=== PATIENT | female | born 1970 | race Hispanic/Latino ===

== ENCOUNTER 2019-04-11 20:53 | Inpatient (IN) | payer BC ==
[~2019-04-11] VITALS: Ht 157.5 cm; Wt 104.8 kg
[2019-04-11] MEDS ORDERED: IBUPROFEN 600 MG TAB ONE (21:31)
[2019-04-11] MEDS ORDERED: ACETAMINOPHEN 325 MG TAB ONE (21:31)
[2019-04-11] MEDS ORDERED: IBUPROFEN 600 MG TAB PO STA (21:41)
[2019-04-11] MEDS ORDERED: ACETAMINOPHEN 325 MG TAB PO ONE (21:45)
[2019-04-11 21:58] LABS: BASOPHILS % 0.2 % (0.0-1.0); EOSINOPHILS % 0.2 % (0.0-6.0); HEMATOCRIT 43.9 % (34.2-44.1); HEMOGLOBIN 14.3 g/dL (12.0-16.0); LYMPHOCYTES # (AUTO) 0.6 (1.0-3.2); LYMPHOCYTES % 3.3 % (18.0-39.1); MEAN CORPUSCULAR HEMOGLOBIN 25.5 pg (28-32); MEAN CORPUSCULAR HGB CONC 32.6 g/dL (31-35); MEAN CORPUSCULAR VOLUME 78.3 fL (81-99); MONOCYTES # (AUTO) 0.8 (0.2-0.8); MONOCYTES % 4.4 % (4.4-11.3); NEUTROPHILS # (AUTO) 16.8 (2.1-6.9); NEUTROPHILS % 91.1 % (38.7-80.0); PLATELET COUNT 244 x10e3/uL (140-360); RED BLOOD COUNT 5.61 x10e6/uL (3.6-5.1); RED CELL DISTRIBUTION WIDTH 15.1 % (11.7-14.4)
[2019-04-11] MEDS ORDERED: IBUPROFEN 600 MG TAB PO ONE (22:00)
[2019-04-11 22:17] LABS: ALANINE AMINOTRANSFERASE 33 IU/L (0-55); ALBUMIN 3.9 g/dL (3.5-5.0); ALKALINE PHOSPHATASE 76 IU/L (40-150); ANION GAP 15.4 mmol/L (8-16); BLOOD UREA NITROGEN 12 mg/dL (7-26); BUN/CREATININE RATIO 14 (6-25); CALCIUM 9.7 mg/dL (8.4-10.2); CARBON DIOXIDE 23 mmol/L (22-29); CHLORIDE 98 mmol/L (98-107); CREATININE, SERUM 0.86 mg/dL (0.57-1.11); EST GLOMERULAR FILTRATION RATE > 60 ML/MIN (60-); GLUCOSE 130 mg/dL (74-118); POTASSIUM 4.4 mmol/L (3.5-5.1); SODIUM 132 mmol/L (136-145)
[2019-04-11] MEDS ORDERED: PENICILLIN G BENZATHINE LA 1.2 MU TBX IM STA (22:23)
[2019-04-11] MEDS ORDERED: SODIUM CHLORIDE 0.9% 1000ML 1,000 ML IV STA ×2 (22:23)
[2019-04-11 22:26] LABS: CLARITY,URINE SL CLOUDY (CLEAR); COLOR,URINE YELLOW (YELLOW); LEUKOCYTE ESTERASE ,URINE TRACE (NEGATIVE); NITRITE,URINE NEGATIVE (NEGATIVE)
[2019-04-11 22:27] LABS: BILIRUBIN,URINE NEGATIVE (NEGATIVE); KETONES,URINE NEGATIVE (NEGATIVE); PROTEIN,URINE DIPSTICK NEGATIVE (NEGATIVE); URINE UROBILINOGEN 0.2 mg/dL (0.2 - 1)
[2019-04-11] MEDS ORDERED: SODIUM CHLORIDE 0.9% 1000ML 2,000 ML ONE (22:28)
[2019-04-11] MEDS ORDERED: KETOROLAC TROMETHAMINE 30 MG/ML VIAL IV STA (22:36)
[2019-04-11] MEDS ORDERED: SODIUM CHLORIDE 0.9% 50ML 50 ML ONE (22:43)
[2019-04-11] MEDS ORDERED: IOPAMIDOL 370 MG/ML 200 ML INFUS..BTL INJ ONE (22:43)
[2019-04-11] MEDS ORDERED: DIPHENHYDRAMINE HCL INJ 50 MG/ML VIAL ONE (22:44)
[2019-04-11] MEDS ORDERED: DEXAMETHASONE SOD PHOS 10 MG/1 ML VIAL IV ONE (22:45)
[2019-04-11 22:54] LABS: BACTERIA,URINE MANY /HPF; EPITHELIAL CELLS,URINE MODERATE /LPF; WBC,URINE (MAN) 21-50 /HPF (0-5)
--- NOTE | 2019-04-11 23:43 | Diagnostic Imaging Report ---
CT Abdomen And Pelvis with Intravenous Contrast INDICATION: Diffuse abdominal pain and fever ^ABD PAIN, N/V ^[id number] ^2300 TECHNIQUE: Thin collimation axial images obtained from the diaphragm to the level of the pubic symphysis following the uneventful administration of 100 cc of low osmolar, nonionic intravenous contrast. Dose reduction techniques used: Automated exposure control, adjustment of the mAs and/or kVp according to patient size, standardized low-dose protocol, and/or iterative reconstruction technique. RADIATION DOSE: Total DLP: 802.4 mGy*cm Estimated effective dose: (DLP x 0.015 x size factor) mSv CTDIvol has been reviewed. It is below the limits set by the Radiation Protocol Committee (RPC). COMPARISON: None. ABDOMEN FINDINGS: Lung Bases: Bibasilar atelectasis. Visualized portion of the mediastinum is normal. Liver: Steatosis. No evidence for mass. Gallbladder: Absent. No biliary ductal dilatation. Pancreas: Normal attenuation without mass or ductal dilatation. Spleen: Normal in size. No evidence of mass. Adrenal Glands: No evidence for mass. Kidneys: Right: Low attenuating lesion interpolar cortex measures 9 mm and is too small to characterize. Low attenuating lesion at the hilum of the mid kidney measures 12 mm and may represent a peripelvic cyst. No hydronephrosis. Left: Normal enhancement. No soft tissue mass. No hydronephrosis. Lymph Nodes: No enlarged upper abdominal lymph nodes. Increased number of left periaortic lymph nodes measuring up to 7 mm in AP dimension. Increased number of mesenteric lymph nodes in the right lower quadrant that measure up to 13 mm. Aorta: Normal in diameter PELVIS FINDINGS: Bowel: Stomach: Normal. Small Bowel: Normal in caliber with normal wall thickness. Large Bowel: Semisolid stool in the cecum with mural hyperemia. More solid stool in the right colon. No significant amount of stool in the transverse or descending colon. Trace amount of fluid at the inferior tip of the cecum. Appendix: Present and diminutive but otherwise normal. Bladder: Under distended. The uterus is present and normal in morphology. No adnexal mass. Bones: Mild degenerative changes of the spine. No compression fractures or listhesis. Soft tissues: Foci of subcutaneous air and nodular soft tissue inflammation in the posterior right pelvis. This may be from injections. No evidence of hernia. IMPRESSION: 1. Mural hyperemia of the cecum and trace amount of pericecal fluid with a diminutive and nondilated appendix. Findings may represent early colitis or gastroenteritis. No bowel obstruction. Prominent pericecal lymph nodes are nonspecific and bear watching. 2. Steatosis. Cholecystectomy. Normal biliary tree. 3. Low attenuating lesions in the right kidney suggestive of cysts. This can be confirmed with ultrasound on an outpatient basis. Signed by: Dr. Netta Stokes MD on 04/11/2019 11:39 PM
[2019-04-12] VITALS (10 sets, daily range): BP systolic 100–130; BP diastolic 55–83
[2019-04-12] MEDS ORDERED: CIPROFLOXACIN 400 MG/D5W 200ML 200 ML IV STA (00:09)
[2019-04-12] MEDS ORDERED: METRONIDAZOLE 750MG/NS 150ML 150 ML IV STA (00:09)
--- NOTE | 2019-04-12 01:10 | NUR ---
repeat lactic collected and sent
[2019-04-12] MEDS ORDERED: METRONIDAZOLE 500MG/NS 100ML 200 ML IV ONE (01:44)
[2019-04-12] MEDS: SODIUM CHLORIDE 0.9% 1000ML 1,000 ML IV SCH ×3 (01:57→21:26)
[2019-04-12] MEDS ORDERED: ACETAMINOPHEN 325 MG TAB PO PRN (02:00)
[2019-04-12] MEDS: MORPHINE SULFATE 2 MG/ML SYR 1ML IV PRN ×2 (02:17→08:30)
[2019-04-12] MEDS: ONDANSETRON HCL INJ 2MG/ML 2ML 2 MG/ML VIAL IV PRN (08:30)
--- NOTE | 2019-04-12 12:00 | NUR ---
Received patient from dayshift nurse, patient in bed awake alert and oriented x3, family at bedside, IVF infusing, @125cc/hr, bed in low position, breaks on, patient denies pain 0/10, belongings and call light within reach, instructed to call when needing assistance. Patient verbalized understanding.
--- NOTE | 2019-04-12 13:10 | NUR ---
Called Dr. Tierra Tineo, spoke with endoscopy nurse, made Dr. Tineo aware of consult.
[2019-04-12] MEDS: CIPROFLOXACIN 400 MG/D5W 200ML 200 ML IV SCH (13:42)
--- NOTE | 2019-04-12 13:45 | NUR ---
Handoff report to nurse MARISABEL Mullen, questions addressed verbalized understanding.
--- NOTE | 2019-04-12 14:22 | NUR ---
Patient transferred to unit from [facility]. No signs of distress at this time. All safety measures in place. Family at bedside. Will continue to monitor.
--- NOTE | 2019-04-12 14:22 | History and Physical ---
CHIEF COMPLAINT: Abdominal pain. HISTORY OF PRESENT ILLNESS: This is a 48-year-old female, morbidly obese, came into the emergency room with complaints of diffuse abdominal pain that began suddenly yesterday. The patient reports around 2 p.m. yesterday, she noticed that she has some diffuse abdominal pain. Initially, thought it was food that she ate and then it was colicky in nature, then went away. She went to bed, woke up, still complains of severe pain. I told her to come to the emergency room for further evaluation and management. On arrival here, the patient had a CT scan shows evidence of hyperemia around the cecum and evidence of early colitis versus gastroenteritis. The patient was then transferred to [facility], was started on IV antibiotics and IV fluids. The patient is seen and evaluated at bedside on the medical floor. She is currently doing very well with no other issues at this time. Her pain is much improved. Her vitals are much improved. No other issues at this time. REVIEW OF SYSTEMS: Pertinent positives: Diffuse abdominal pain, decreased oral intake. Pertinent negatives: Denies any chest pain, palpitation, nausea, vomiting, diarrhea, dysuria, hematuria, frequency, urgency, lightheadedness, dizziness, cough, congestion, fever, or any other complaints. The rest of the 14-point review of systems have been reviewed with the patient and are negative. ALLERGIES: NO KNOWN DRUG ALLERGIES. HOME MEDICATIONS: None. PAST MEDICAL HISTORY: Reports none, morbidly obese. PAST SURGICAL HISTORY: None. FAMILY HISTORY: Hypertension and diabetes. SOCIAL HISTORY: No drugs. No drugs. Does not smoke. Good social support. and has children. PHYSICAL EXAMINATION: VITAL SIGNS: Temperature is 96.6, but T-max is 103.1, pulse 75, respiratory rate is 20, blood pressure 100/62, and pulse ox 99% on room air. GENERAL: Not in acute distress. Alert and oriented x3. Cooperative on examination. HEENT: Head; normocephalic, atraumatic. Eyes; pupils are equal, round, and reactive to light bilaterally. Extraocular movements intact bilaterally. Throat; no evidence of erythema or exudates in the posterior pharynx. Has poor dentition. NECK: Supple. Good range of motion. PULMONARY: Clear to auscultation bilaterally. No wheezing, no rales, no rhonchi, no crackles appreciated. CARDIOVASCULAR: Positive S1 and S2. No murmurs, rubs, or gallops appreciated. ABDOMEN: Tender to palpation. No rebound. No guarding. Positive bowel sounds. MUSCULOSKELETAL: Strength is 5/5 throughout. No evidence of any muscle deficits on examination. No weakness appreciated. SKIN: Intact. Warm to touch. Good cap refill. PSYCHIATRIC: Normal affect and mood. EXTREMITIES: No edema. Good range of motion throughout. LABORATORY FINDINGS: Show white count 18.3, hemoglobin 14, hematocrit is 43, and platelets of 244. Chemistry; sodium 132, potassium 4.4, chloride 98, bicarbonate 23, anion gap of 15, BUN is 12, creatinine is 0.86, and glucose is 130. Lactic acid on admission was 21, then down to 13, which is normal at this hospital. Calcium 9.7. LFTs within normal range. Alkaline phosphatase 76, albumin 3.9. HCG was found to be negative. Urinalysis concern for UTI. Group B strep was found to be negative. MICROBIOLOGY: Blood cultures pending. Toe culture, so far no growth. Urine culture is preliminary. IMAGING STUDIES: CT abdomen and pelvis showed mural hyperemia of the cecum and trace amount of pericecal fluid with a diminutive and nondilated appendix. Findings may represent early colitis or gastroenteritis. No bowel obstruction. Prominent pericecal lymph nodes are nonspecific and bear watching. Steatosis, cholecystectomy, normal biliary tree. Low attenuation lesions in the right kidney associated with cysts. This can be confirmed with ultrasound as an outpatient basis. IMPRESSION: 1. Acute colitis. 2. Abdominal pain with nausea, decreased oral intake secondary to acute colitis. 3. Sepsis with leukocytosis with underlying lactic acidosis secondary to colitis. 4. Probable urinary tract infection. PLAN: At this time, continue with IV Cipro and Flagyl for underlying colitis. Clear liquid diet, IV fluids, pain control. Monitor urine cultures. GI consultation. Monitor blood cultures. Not sure what the throat cultures were for. Imaging studies reviewed. She will be on Lovenox for DVT prophylaxis. Currently, no medications on her MAR from home. We will continue with same medications here at the hospital. I discussed plan of care with the patient and nursing staff. Repeat labs in the morning. MD NELLA Hall/KALI /[id number]
[2019-04-12] MEDS: METRONIDAZOLE 500MG/NS 100ML 100 ML IV SCH ×2 (14:48→21:26)
--- NOTE | 2019-04-12 18:54 | NUR ---
Bedside report given to night nurse. No c/o pain or signs of distress at this time. All safety measures in place. Family at bedside.
[2019-04-12] MEDS: HYDROCODONE/APAP 5MG-325MG TAB PO PRN (21:30)
[2019-04-13] VITALS (8 sets, daily range): BP systolic 92–152; BP diastolic 50–89
[2019-04-13] MEDS: CIPROFLOXACIN 400 MG/D5W 200ML 200 ML IV SCH ×2 (01:09→13:13)
[2019-04-13] MEDS: METRONIDAZOLE 500MG/NS 100ML 100 ML IV SCH ×3 (05:19→22:00)
[2019-04-13 06:08] LABS: BASOPHILS % 0.2 % (0.0-1.0); EOSINOPHILS % 0.1 % (0.0-6.0); HEMATOCRIT 36.4 % (34.2-44.1); HEMOGLOBIN 11.5 g/dL (12.0-16.0); LYMPHOCYTES # (AUTO) 1.7 (1.0-3.2); MEAN CORPUSCULAR HEMOGLOBIN 25.1 pg (28-32); MEAN CORPUSCULAR HGB CONC 31.6 g/dL (31-35); MEAN CORPUSCULAR VOLUME 79.5 fL (81-99); MONOCYTES % 5.7 % (4.4-11.3); NEUTROPHILS % 83.2 % (38.7-80.0); PLATELET COUNT 205 x10e3/uL (140-360); RED BLOOD COUNT 4.58 x10e6/uL (3.6-5.1); RED CELL DISTRIBUTION WIDTH 15.5 % (11.7-14.4)
[2019-04-13 06:38] LABS: ALANINE AMINOTRANSFERASE 29 IU/L (0-55); ALBUMIN 2.9 g/dL (3.5-5.0); ALBUMIN/GLOBULIN RATIO 0.9 (0.8-2.0); ALKALINE PHOSPHATASE 53 IU/L (40-150); ANION GAP 11.5 mmol/L (8-16); BLOOD UREA NITROGEN 11 mg/dL (7-26); BUN/CREATININE RATIO 16 (6-25); CALCIUM 8.3 mg/dL (8.4-10.2); CARBON DIOXIDE 23 mmol/L (22-29); CHLORIDE 108 mmol/L (98-107); CREATININE, SERUM 0.67 mg/dL (0.57-1.11); EST GLOMERULAR FILTRATION RATE > 60 ML/MIN (60-); GLUCOSE 101 mg/dL (74-118); POTASSIUM 3.5 mmol/L (3.5-5.1); SODIUM 139 mmol/L (136-145)
--- NOTE | 2019-04-13 07:08 | NUR ---
Received bedside report from night nurse. Patient resting in bed, no c/o of pain or signs of distress at this time. All safety measures in place. Family at bedside. Will continue to monitor.
[2019-04-13] MEDS: SODIUM CHLORIDE 0.9% 1000ML 1,000 ML IV SCH (09:57)
[2019-04-13] MEDS: HYDROCODONE/APAP 5MG-325MG TAB PO PRN ×2 (10:01→20:45)
--- NOTE | 2019-04-13 15:39 | NUR ---
Patient tolerating full liquid diet. Upgrading to GI soft diet for dinner per Dr. Carranza's orders.
--- NOTE | 2019-04-13 15:58 | Progress Note ---
DATE: 04/13/2019 Medicine Progress Note SUBJECTIVE: The patient is doing much better today. We are going to advance her diet. She denies any abdominal pain. PHYSICAL EXAMINATION: VITAL SIGNS: Temperature is 97.4, pulse 64, respirations 17, blood pressure 119/78, pulse ox 98% on room air. GENERAL: Not in acute distress. Alert and oriented x3. Cooperative on examination. HEENT: Head; normocephalic, atraumatic. Eyes; pupils are equal, round, and reactive to light bilaterally. Extraocular movements intact bilaterally. Throat; no evidence of erythema or exudates in the posterior pharynx. Has poor dentition. NECK: Supple. Good range of motion. PULMONARY: Clear to auscultation bilaterally. MUSCULOSKELETAL: No evidence of any muscle deficits on examination. No weakness appreciated. NEUROLOGIC: Cranial nerve II through XII grossly intact. No evidence of any neurological deficits on exam. SKIN: Intact. Warm to touch. Good cap refill. PSYCHIATRIC: Normal affect and mood. EXTREMITIES: No edema. Good range of motion throughout. LAB FINDINGS: Show white count improved to 16.8, hemoglobin 11.5, hematocrit is 29.5, platelets of 205. Chemistry; sodium 139, potassium 3.5, chloride 108, bicarb 23, anion gap of 11, BUN is 11, creatinine is 0.67. Point of care glucose is 210, calcium 8.3. LFTs within normal range. Albumin is 2.09. MICROBIOLOGY: Blood cultures, no growth. Throat cultures were final and it is negative. Urine cultures were final and it is negative. Stool cultures are pending. IMAGING STUDIES: None. IMPRESSION: 1. Acute colitis. 2. Abdominal pain, nausea, vomiting, improved. 3. Sepsis with leukocytosis, with mild lactic acidosis secondary to colitis, improved. 4. Urinary tract infection, ruled out, found to be negative. PLAN: At this time, continue with IV antibiotics for now. I read GI's note and they reports that the patient can be discharged soon once everything has improved. She will need a repeat CT scan in about 2 weeks' time and she will need to follow up with GI in 2 weeks. The patient's white count is still elevated and her diet still has not been advanced. We will advance diet now to as tolerated. Continue with IV antibiotics. Discontinue IV fluids. Encourage ambulation. Once the patient tolerates diet well, then we can plan to discharge tomorrow if her labs are better and her white count is improved, and she has no complaints. I discussed this with the patient at bedside. She verbalized understanding. MD NELLA Hall/KALI /[id number]
--- NOTE | 2019-04-13 19:29 | NUR ---
Bedside report given to night nurse. Patient sitting at side of bed, no signs of distress at this time. All safety measures in place.
--- NOTE | 2019-04-13 20:10 | NUR ---
RECEIVED PT IN BED AOX3 .RESPIRATIONS ARE EVEN AND UNLABORED .PT C/O ABD PAIN CALL LIGHT WITH IN REACH CONTINUE TO MONITOR
[2019-04-14] VITALS: BP 93/54
[2019-04-14] MEDS: CIPROFLOXACIN 400 MG/D5W 200ML 200 ML IV SCH (01:00)
[2019-04-14] MEDS: MORPHINE SULFATE 2 MG/ML SYR 1ML IV PRN (02:40)
[2019-04-14] MEDS: ONDANSETRON HCL INJ 2MG/ML 2ML 2 MG/ML VIAL IV PRN (02:41)
[2019-04-14 04:00] VITALS: BP 114/59
[2019-04-14] MEDS: METRONIDAZOLE 500MG/NS 100ML 100 ML IV SCH (06:00)
[2019-04-14 06:26] LABS: BASOPHILS # (AUTO) 0.1 (0.0-0.1); BASOPHILS % 0.5 % (0.0-1.0); EOSINOPHILS # (AUTO) 0.1 (0.0-0.4); EOSINOPHILS % 0.9 % (0.0-6.0); LYMPHOCYTES # (AUTO) 2.4 (1.0-3.2); LYMPHOCYTES % 21.7 % (18.0-39.1); MEAN CORPUSCULAR HEMOGLOBIN 25.4 pg (28-32); MEAN CORPUSCULAR HGB CONC 32.4 g/dL (31-35); MEAN CORPUSCULAR VOLUME 78.2 fL (81-99); MONOCYTES # (AUTO) 0.8 (0.2-0.8); MONOCYTES % 6.8 % (4.4-11.3); NEUTROPHILS # (AUTO) 7.6 (2.1-6.9); NEUTROPHILS % 67.9 % (38.7-80.0); PLATELET COUNT 220 x10e3/uL (140-360); RED BLOOD COUNT 4.73 x10e6/uL (3.6-5.1); RED CELL DISTRIBUTION WIDTH 15.3 % (11.7-14.4)
[2019-04-14] MEDS: HYDROCODONE/APAP 5MG-325MG TAB PO PRN (06:43)
[2019-04-14 06:51] LABS: ANION GAP 12.5 mmol/L (8-16); BLOOD UREA NITROGEN 7 mg/dL (7-26); BUN/CREATININE RATIO 10 (6-25); CALCIUM 9.2 mg/dL (8.4-10.2); CARBON DIOXIDE 24 mmol/L (22-29); CHLORIDE 106 mmol/L (98-107); CREATININE, SERUM 0.67 mg/dL (0.57-1.11); EST GLOMERULAR FILTRATION RATE > 60 ML/MIN (60-); GLUCOSE 90 mg/dL (74-118); POTASSIUM 3.5 mmol/L (3.5-5.1); SODIUM 139 mmol/L (136-145)
[2019-04-14] MEDS ORDERED: [UNRECOGNIZED DRUG - OTHER] PO (07:16)
[2019-04-14] MEDS ORDERED: VASOTEC5 MG PO (07:16)
[2019-04-14 07:45] VITALS: BP 112/66
--- NOTE | 2019-04-14 07:45 | NUR ---
PT IN BED SLEEPING NO DISTRESS NTOED,
[2019-04-14 07:47] VITALS: BP 112/66
[2019-04-14 07:58] LABS: BAND NEUTROPHILS % (MANUAL) 4 %; LYMPHOCYTES % (MANUAL) 25 % (19-48); MONOCYTES % (MANUAL) 7 % (3.4-9.0); NEUTROPHILS % (MANUAL) 64 % (40-74); RBC MORPHOLOGY COMMENT NORMAL
[2019-04-14 07:59] LABS: PLATELET ESTIMATE ADEQUATE; PLATELET MORPHOLOGY COMMENT NORMAL
--- NOTE | 2019-04-14 10:48 | NUR ---
PT UP AMBULATING IN [facility] DENIES PAIN
[2019-04-14 11:35] VITALS: BP 138/84
[2019-04-14] MEDS ORDERED: CIPRO500 MG PO (12:17)
[2019-04-14] MEDS ORDERED: FLAGYL250 MG PO (12:18)
--- NOTE | 2019-04-14 12:35 | NUR ---
PT DISCHARGED HOME ,IV DCD WITHOUT REDNESS OR SWELLING,PRESCRIPTIONS AND INSTRUCTIONS GIVEN COPY ON CHART,TRANSPORTED TO AUTO VIA W/C
--- NOTE | 2019-04-15 08:33 | Discharge Summary ---
FINAL DISCHARGE DIAGNOSES: 1. Acute colitis, likely due to underlying infectious etiology. 2. Abdominal pain, nausea and vomiting, resolved. 3. Sepsis with underlying leukocytosis, likely due to underlying colitis, improving. 4. Urinary tract infection was ruled out and found to be negative. CONSULTANTS: We had GI. PHYSICAL EXAMINATION: VITAL SIGNS: Temperature is 96.5, pulse is 73, respiratory rate is 20, blood pressure 130/84, and pulse ox 100% on room air. LABORATORY DATA: Lab findings show white count on admission was 18.3, then 16.8, now down trended to 11.2. Hemoglobin is 12, hematocrit is 37, and platelets of 320. Chemistry; sodium 139, potassium 3.5, chloride 106, bicarb 24, anion gap of 12, BUN 7, creatinine 0.67, glucose 90, calcium 9.2. LFTs within normal range. Albumin was 2.9. Serum hCG was negative. Urinalysis was a contaminant. Blood cultures x2 was negative. Her throat cultures were negative and urine culture negative. IMAGING STUDIES: CT abdomen and pelvis shows mural hyperemia of the cecum and trace amount of pericecal fluid with diminutive and nondilated appendix. Findings may represent early colitis or gastroenteritis. No bowel obstruction. Prominent pericecal lymph nodes are nonspecific and bear watching. Steatosis, cholecystectomy, normal biliary tree. Does have some right kidney cyst. Needs outpatient followup with her PCP. I discussed this with her, and she verbalized understanding to follow up as an outpatient. HOSPITAL COURSE: This is a 48-year-old female, who came into the emergency room with complaints of abdominal pain, nausea, vomiting, and decreased oral intake. The patient was admitted and GI was consulted. The patient was found to have acute colitis on imaging studies, CT abdomen and pelvis, in the cecal area. In discussion with GI, the patient likely has an infectious etiology relating to this underlying colitis. While here, she was on IV antibiotics and improved tremendously. Her white count down trended to 11 prior to being discharged home. Her abdomen was soft and nontender on examination prior to being discharged. She was tolerating regular diet well with no issues. Per GI's note, the patient is cleared for discharge to home, but needs outpatient followup in 2 weeks in this office and also needs a repeat CT imaging at that time. The patient was advised to follow up with GI as recommended as well as with the PCP. On discharge, the patient was doing well back to normal baseline with no other complaints. Her blood cultures were found to be negative. Her urine cultures and throat cultures were negative. No further workup was needed. She was back to normal baseline with no other complaints. The patient was also afebrile prior to being discharged. On the day of discharge, vital signs were stable, labs reviewed and stable. The patient is seen and evaluated, examined thoroughly on the day of discharge. No other complaints. The patient verbalized understanding and agrees with plan of care to follow up as an outpatient with PCP in 1 week and GI specialist in 2 weeks' time and possibly needing repeat CT imaging at that time. MEDICATIONS: See med reconciliation form. DISPOSITION: Home. CONDITION: Stable. DIET: Heart healthy. In the event of any worsening symptoms, the patient is advised to come back to the emergency room for further evaluation and care. I did discuss this with the patient at bedside that in the event she has worsening pain, nausea, vomiting, decreased oral intake or any fever, she was advised to come back to the emergency room for further evaluation and likely needs repeat CT imaging at that time. At this time, she has been cleared for discharge by GI standpoint. The patient verbalized understanding and agrees to plan of care. During the conversation, I answered all her questions and has no more issues or other questions at this time. She verbalized understanding and agrees to plan of care. Discharge summary took greater than 35 minutes. MD NELLA Hall/KALI /[id number]
== END 2019-04-14 12:36 | disposition home or self-care (01) | DRG 872 ==
LOC: ER 20:53 → EDBD 20:53 → ERHOLD 04-12 00:28 → IMCU 04-12 02:19 → OBSVTOIN 04-12 12:36 → MED/SURG3 04-12 14:17
PROVIDERS: ADMIT Internal Medicine; ATTEND Internal Medicine
DX: A41.9 Sepsis, unspecified organism (principal); A09 Infectious gastroenteritis and colitis, unspecified; Z90.49 Acquired absence of other specified parts of digestive tract; K59.8 Other specified functional intestinal disorders; K76.0 Fatty (change of) liver, not elsewhere classified; N28.1 Cyst of kidney, acquired
CPT/HCPCS: 36415; 74177; 80048; 80053; 81001; 82948; 83518; 83605; 84702; 85025; 87040; 87045; 87070; 87086; 87493; 96372; 96374; 96375; 99284; J0561; J1100; J1200; J1885; J2270; J2405; J7030; Q9967

== ENCOUNTER 2022-02-04 02:24 | Emergency (ER) | payer BC ==
[~2022-02-04] VITALS: Ht 157.5 cm; Wt 104.8 kg
[~2022-02-04 02:24] MED LIST: CIPRO500 MG PO; FLAGYL250 MG PO; VASOTEC5 MG PO; [UNRECOGNIZED DRUG - OTHER] PO
[2022-02-04] MEDS ORDERED: KETOROLAC TROMETHAMINE 30 MG/ML VIAL IV STA (02:32)
[2022-02-04] MEDS ORDERED: SODIUM CHLORIDE 0.9% 1000ML 1,000 ML IV STA (02:32)
[2022-02-04] MEDS ORDERED: ACETAMINOPHEN 325 MG TAB PO STA (02:55)
[2022-02-04] MEDS ORDERED: ONDANSETRON HCL INJ 2MG/ML 2ML 2 MG/ML VIAL IV STA (03:11)
[2022-02-04] MEDS ORDERED: ONDANSETRON HCL INJ 2MG/ML 2ML 2 MG/ML VIAL ONE (03:12)
[2022-02-04 03:29] LABS: BASOPHILS % 0.3 % (0.0-1.0); EOSINOPHILS # (AUTO) 0.2 (0.0-0.4); EOSINOPHILS % 1.8 % (0.0-6.0); HEMATOCRIT 45.1 % (34.2-44.1); LYMPHOCYTES # (AUTO) 1.8 (1.0-3.2); LYMPHOCYTES % 14.8 % (18.0-39.1); MEAN CORPUSCULAR HEMOGLOBIN 26.3 pg (28-32); MEAN CORPUSCULAR VOLUME 84.8 fL (81-99); NEUTROPHILS # (AUTO) 9.1 (2.1-6.9); NEUTROPHILS % 74.7 % (38.7-80.0); PLATELET COUNT 255 x10e3/uL (140-360); RED BLOOD COUNT 5.32 x10e6/uL (3.6-5.1); RED CELL DISTRIBUTION WIDTH 14.6 % (11.7-14.4)
[2022-02-04 03:41] LABS: CLARITY,URINE CLEAR (CLEAR); COLOR,URINE YELLOW (YELLOW); LEUKOCYTE ESTERASE ,URINE NEGATIVE (NEGATIVE)
[2022-02-04 03:42] LABS: KETONES,URINE NEGATIVE (NEGATIVE); NITRITE,URINE NEGATIVE (NEGATIVE); PROTEIN,URINE DIPSTICK 2+ (NEGATIVE); URINE UROBILINOGEN 0.2 mg/dL (0.2 - 1)
[2022-02-04 03:46] LABS: ALBUMIN 3.6 g/dL (3.5-5.0); ALBUMIN/GLOBULIN RATIO 0.9 (0.8-2.0); CALCIUM 8.9 mg/dL (8.4-10.2); CREATININE, SERUM 2.07 mg/dL (0.57-1.11)
[2022-02-04 04:02] LABS: BACTERIA,URINE MODERATE /HPF; EPITHELIAL CELLS,URINE MANY /LPF; WBC,URINE (MAN) 0-5 /HPF (0-5)
[2022-02-04 04:03] LABS: MUCUS,URINE FEW (RARE)
[2022-02-04] MEDS ORDERED: CEFDINIR300 MG PO (05:32)
[2022-02-04] MEDS: PIPER-TAZ 3.375 GM 50 ML IV ONE ×2 (06:33→06:34)
[2022-02-04 06:50] VITALS: BP 136/82
== END 2022-02-04 06:52 | disposition home or self-care (01) ==
LOC: ER 02:26
DX: R10.9 Unspecified abdominal pain (principal); N39.0 Urinary tract infection, site not specified; R11.2 Nausea with vomiting, unspecified; N28.9 Disorder of kidney and ureter, unspecified; I10 Essential (primary) hypertension
CPT/HCPCS: 36415; 74176; 80053; 81001; 81025; 83605; 83690; 85025; 87040; 99284; J1885; J2405; J2543 ×2; J7030

== ENCOUNTER 2022-04-12 14:44 | Emergency (ER) | payer BC ==
[~2022-04-12] VITALS: Ht 157.5 cm; Wt 104.8 kg
[~2022-04-12 14:44] MED LIST changes: +CEFDINIR300 MG PO
[2022-04-12] MEDS ORDERED: ONDANSETRON HCL INJ 2MG/ML 2ML 2 MG/ML VIAL IV STA (15:10)
[2022-04-12] MEDS ORDERED: ACETAMINOPHEN 1000 MG/100 ML IV STA (15:10)
[2022-04-12] MEDS ORDERED: Morphine 4mg INJECTION 4 MG/ML INJ IV ONE (15:15)
[2022-04-12 15:24] LABS: BASOPHILS % 0.4 % (0.0-1.0); EOSINOPHILS % 0.1 % (0.0-6.0); HEMATOCRIT 44.1 % (34.2-44.1); HEMOGLOBIN 14.2 g/dL (12.0-16.0); LYMPHOCYTES # (AUTO) 0.9 (1.0-3.2); LYMPHOCYTES % 7.6 % (18.0-39.1); MEAN CORPUSCULAR HEMOGLOBIN 26.4 pg (28-32); MEAN CORPUSCULAR HGB CONC 32.2 g/dL (31-35); MEAN CORPUSCULAR VOLUME 82.1 fL (81-99); MONOCYTES # (AUTO) 0.6 (0.2-0.8); MONOCYTES % 5.1 % (4.4-11.3); NEUTROPHILS # (AUTO) 9.5 (2.1-6.9); NEUTROPHILS % 85.8 % (38.7-80.0); PLATELET COUNT 232 x10e3/uL (140-360); RED BLOOD COUNT 5.37 x10e6/uL (3.6-5.1); RED CELL DISTRIBUTION WIDTH 14.3 % (11.7-14.4)
[2022-04-12] MEDS ORDERED: SODIUM CHLORIDE 0.9% 1000ML 1,000 ML IV SCH (15:30)
[2022-04-12 15:34] LABS: INR 0.99
[2022-04-12 15:35] LABS: PARTIAL THROMBOPLASTIN TIME 30.1 seconds (23.8-35.5)
[2022-04-12 15:45] LABS: CALCIUM 9.2 mg/dL (8.4-10.2); CREATININE, SERUM 0.85 mg/dL (0.57-1.11)
[2022-04-12 16:33] LABS: CLARITY,URINE SL CLOUDY (CLEAR); COLOR,URINE YELLOW (YELLOW); KETONES,URINE TRACE (NEGATIVE); LEUKOCYTE ESTERASE ,URINE NEGATIVE (NEGATIVE); NITRITE,URINE NEGATIVE (NEGATIVE); PROTEIN,URINE DIPSTICK TRACE (NEGATIVE); URINE UROBILINOGEN 0.2 mg/dL (0.2 - 1)
[2022-04-12 16:34] LABS: STREPTOCOCCUS GRP A ANTIGEN NEGATIVE (NEGATIVE)
[2022-04-12 16:36] LABS: BACTERIA,URINE MODERATE /HPF; EPITHELIAL CELLS,URINE MANY /LPF; TRANSITIONAL EPI CELLS,URINE FEW; WBC,URINE (MAN) 0-5 /HPF (0-5)
[2022-04-12] MEDS ORDERED: ONDANSETRON ODT4 MG PO (17:27)
[2022-04-12] MEDS ORDERED: IBUPROFEN800 MG PO (17:27)
[2022-04-12] MEDS ORDERED: DICYCLOMINE HCL20 MG PO (17:27)
[2022-04-12 17:40] VITALS: BP 107/70
== END 2022-04-12 17:44 | disposition home or self-care (01) ==
LOC: ER 14:54
DX: R50.9 Fever, unspecified (principal); R19.7 Diarrhea, unspecified; R10.11 Right upper quadrant pain; R10.31 Right lower quadrant pain; Z20.822 Contact with and (suspected) exposure to COVID-19
CPT/HCPCS: 36415; 71045; 74176; 80053; 81001; 83518; 83605; 85025; 85610; 85730; 87040; 87070; 87086; 93005; 99284; J0131; J0456; J0696; J2270; J2405; J7030; J7050; U0002